=== PATIENT | male | born 1950 | race Caucasian/White ===

== ENCOUNTER 2016-11-17 13:30 | Inpatient (IN) ==
[2016-11-17 15:32] LABS: Basophils # (Auto) 0 K/mcL (0.0-0.3); Basophils % (Auto) 0.4 % (0.0-2.0); Eosinophils # (Auto) 0.2 K/mcL (0.0-0.7); Eosinophils % (Auto) 2.5 % (0.0-7.0); Granulocytes % (Auto) 64.1 % (38.0-78.0); Lymphocytes # (Auto) 2.3 K/mcL (1.5-4.8); Lymphocytes % (Auto) 23.9 % (15.5-49.0); Mean Cell Volume 91.5 fL (80.0-100.0); Mean Corpuscular Hemoglobin 31.2 pg (26.0-34.0); Monocytes # (Auto) 0.9 K/mcL (0.1-0.9); Monocytes % (Auto) 9.1 % (1.0-12.0); Platelet Count 206 K/mcL (140-440); RBC 5.17 M/mcL (4.50-5.90); Red Cell Distribution Width 13.1 % (11.5-14.5)
[2016-11-17 15:41] LABS: Appearance,Urine CLEAR; Bacteria,Urine 0 /hpf (0); Bilirubin,Urine NEG (NEG); Color,Urine YELLOW; Glucose,Urine (UA) >=500 mg/dL (NEG); Leukocyte Esterase,Urine NEG /uL (NEG); Mucus,Urine FEW /hpf (0); Nitrate,Urine NEG (NEG); Protein,Urine NEG (NEG); Specific Gravity,Urine 1.035 (1.000-1.035); Urine Blood NEG mg/dL (<0.03); Urine RBC 1 /hpf (0-1); Urine Squamous Epithelial Cell < 1 /hpf (0-4); Urine WBC < 1 /hpf (0-4); Urobilinogen,Urine NEG (NEG)
[2016-11-17 15:48] LABS: Blood Urea Nitrogen 14 mg/dl (8-23)
[2016-11-23] MEDS ORDERED: PREGABALIN 75 MG CAPSULE PO SCH (05:00)
[2016-11-23] MEDS ORDERED: oxyCODONE 10 MG TAB.ER.12H PO SCH (05:00)
[2016-11-23] MEDS ORDERED: ACETAMINOPHEN 500 MG TABLET PO SCH (05:00)
[2016-11-23] MEDS ORDERED: CELECOXIB 200 MG CAPSULE PO SCH (05:00)
[2016-11-23] MEDS ORDERED: ceFAZolin 1 GM VIAL IV SCH (05:00)
[2016-11-23] MEDS ORDERED: GLYCOPYRROLATE 0.2 MG/ML VIAL IV ONE (13:45)
[2016-11-23] MEDS ORDERED: LIDOCAINE HCL/PF 100 MG/5 ML SYRINGE IV ONE (13:45)
[2016-11-23] MEDS ORDERED: fentaNYL 100 MCG/2 ML VIAL IV ONE (13:45)
[2016-11-23] MEDS ORDERED: SUCCINYLCHOLINE 20 MG/ML ML IV ONE (13:45)
[2016-11-23] MEDS ORDERED: MIDAZOLAM 2 MG/2 ML VIAL IV ONE (13:45)
[2016-11-23] MEDS ORDERED: DEXAMETHASONE 10 MG/ML VIAL IV ONE (13:45)
[2016-11-23] MEDS ORDERED: ONDANSETRON 4 MG/2 ML VIAL IV ONE (13:45)
[2016-11-23] MEDS ORDERED: TRANEXAMIC ACID 1,000 MG/10 ML VIAL IV ONE (13:45)
[2016-11-23] MEDS ORDERED: ROPIVACAINE HCL/PF 30 ML VIAL IJ ONE (13:45)
[2016-11-23] MEDS ORDERED: PROPOFOL 200 MG/20 ML VIAL IV ONE (13:45)
[2016-11-23] MEDS ORDERED: MAGNESIUM HYDROXIDE 30 ML ORAL.SUSP PO PRN ×2 (13:59→15:28)
[2016-11-23] MEDS ORDERED: TRANEXAMIC ACID 1,000 MG/10 ML VIAL IV SCH ×2 (13:59→15:28)
[2016-11-23] MEDS ORDERED: BENZOCAINE/MENTHOL 1 LOZENGE PO PRN ×3 (13:59→15:28)
[2016-11-23] MEDS ORDERED: FLEETS ADULT ENEMA PR PRN ×2 (13:59→15:28)
[2016-11-23] MEDS ORDERED: KETOROLAC 15 MG/ML VIAL IV PRN ×2 (13:59→15:28)
[2016-11-23] MEDS ORDERED: HYDROcodone/APAP 10/325MG TABLET PO PRN ×2 (13:59→15:28)
[2016-11-23] MEDS ORDERED: POLYETHYLENE GLYCOL 3350 17 GM PACKET PO PRN ×2 (13:59→15:28)
[2016-11-23] MEDS ORDERED: HYDROmorphone 2 MG/ML SYRINGE IV PRN ×3 (13:59→15:28)
[2016-11-23] MEDS ORDERED: BISACODYL 10 MG SUPP.RECT PR PRN ×2 (13:59→15:28)
[2016-11-23] MEDS ORDERED: ACETAMINOPHEN 325 MG TABLET PO PRN ×2 (13:59→15:28)
[2016-11-23] MEDS ORDERED: ONDANSETRON 4 MG/2 ML VIAL IV PRN ×3 (13:59→15:28)
[2016-11-23] MEDS ORDERED: NITROGLYCERIN 0.4 MG TAB.SUBL SL PRN (14:01)
--- NOTE | 2016-11-23 14:03 | Brief Operative Note ---
Date of procedure: 11/23/16 Pre-op diagnosis: right shoulder rca and severe djd Post-op diagnosis: same Procedure: right reverse tsa and bicep tenodesis Grafts/Implants: Yes Anesthesia: GETA Complications Description: 11/23/16 14:02 none Surgeon: Baljit Burnett Floral Specialist: Shashank Houser Estimated blood loss (cc): 20 Specimens Removed/Pathology: none sent Condition: stable Disposition: PACU
[2016-11-23] MEDS ORDERED: GENTAMICIN SULFATE 800 MG/20 ML VIAL IR ONE (14:20)
[2016-11-23] MEDS ORDERED: IPRATROPIUM/ALBUTEROL 3 ML AMPUL.NEB NEB PRN (14:55)
[2016-11-23] MEDS ORDERED: MEPERIDINE 50 MG/ML SYRINGE IM PRN (14:55)
[2016-11-23] MEDS ORDERED: ePHEDrine 50 MG/ML AMPUL IV PRN (14:55)
[2016-11-23] MEDS ORDERED: diphenhydrAMINE 50 MG/ML VIAL IV PRN (14:55)
[2016-11-23] MEDS ORDERED: NALOXONE HCL 0.4 MG/ML VIAL IV PRN (14:55)
[2016-11-23] MEDS ORDERED: FLUMAZENIL 0.1 MG/ML ML IV PRN (14:55)
[2016-11-23] MEDS ORDERED: MEPERIDINE 25 MG/ML SYRINGE IV PRN (14:55)
[2016-11-23] MEDS ORDERED: fentaNYL 100 MCG/2 ML VIAL IV PRN (14:55)
[2016-11-23] MEDS ORDERED: METHOCARBAMOL 1,000 MG/10 ML VIAL IV PRN (14:55)
[2016-11-23] MEDS ORDERED: LACTATED RINGERS 250 ML IV PRN (14:55)
[2016-11-23] MEDS ORDERED: LACTATED RINGERS 1,000 ML IV SCH (15:00)
[2016-11-23] MEDS ORDERED: TEMAZEPAM 15 MG CAPSULE PO PRN ×2 (15:28→21:00)
[2016-11-23] MEDS ORDERED: 0.45 % SODIUM CHLORIDE 1,000 ML IV SCH (15:30)
[2016-11-23] MEDS: 0.9 % SODIUM CHLORIDE 10 ML SYRINGE IV SCH ×3 (16:25→23:16)
[2016-11-23] MEDS: 0.45 % SODIUM CHLORIDE 1,000 ML IV SCH (16:26)
--- NOTE | 2016-11-23 16:36 | XRay Report ---
HISTORY: Reason for Exam:Post-OP Total Shoulder FINDINGS: There is a well-positioned reverse total shoulder prosthesis. No fracture is present and there are no abnormal soft tissue calcifications around the joint. IMPRESSION: Well-positioned right shoulder prosthesis Interpreted and Authenticated by: Otis Robertson 11/23/16
--- NOTE | 2016-11-23 16:45 | Operative Note ---
DATE OF OPERATION: 11/23/2016 PREOPERATIVE DIAGNOSIS: Right shoulder rotator cuff arthropathy with biceps tendinopathy. POSTOPERATIVE DIAGNOSIS: Right shoulder rotator cuff arthropathy with biceps tendinopathy. PROCEDURE: Right reverse total shoulder with a biceps tenodesis. SURGEON: Baljit Burnett MD. INFORMATION TECHNOLOGY PROGRAM MANAGER: Shashank Houser PA-C. ANESTHESIA: General LMA anesthesia. COMPLICATIONS: None. ESTIMATED BLOOD LOSS: About 50 mL. BLOOD PRODUCTS GIVEN: None. PREOPERATIVE MEDICATIONS: Tranexamic acid and preop antibiotics given. DESCRIPTION OF PROCEDURE: The patient was brought to the operating room and put to sleep with general LMA anesthesia. Once sat in a beach chair position and sterilely prepped and draped, we did confirm that the right shoulder was the preoperative extremity both by initials, x-rays and consent form. We then placed Ioban over the skin and made a deltopectoral approach. The hand was covered with a stockinette and a Coban. We then made a deltopectoral approach with about a 5 or 6-inch incision from the deltoid insertion to just above the coracoid. Once this was done, this identified the cephalic vein. The deltoid was taken laterally. We elevated the deltoid muscle from the capsule. We then released the subscap and performed a biceps tenodesis with the remnants of the biceps. This was identified and removed and reattached to the pectoralis major with two [id number] #2 Ethibond stitches. Once secured, we released and removed the remnant proximally. After releasing the subscap and removing the capsule and performing a 360 degree capsulotomy and taking the attachment of the capsule onto the humeral neck past the 6 o'clock position. We then placed the guide, made our cut across the neck at the surgical neck region. The bony fragment or head was removed. We then placed a small plate to protect the bone and subluxed the head posteriorly. Once this was done, we then placed this posteriorly and identified the glenoid, 360 degree capsulotomy removing the labrum and the attachment of the biceps. A pin was placed centrally and reamed up to a size 40 until we had bleeding bone on the inferior 50%. We placed the metaglene, which was put into place with a 32 mm central screw, 32 mm superior and inferior screws and then a 32 mm anteriorly. We then placed a 40 mm glenosphere with 2 mm of the inferior eccentricity and 6 mm of offset. Once done, we irrigated thoroughly. We then broached up on the humerus. The humerus was broached up to a 13 stem. We trialed the 13 stem, countersinking this slightly and keeping it at 20 degrees of retroversion. I then placed the trial, and this seemed to fit very nicely. We then tapped into place a size 13 cementless trial with a size 4 standard thickness poly. This reduced very nicely. We irrigated thoroughly and then repaired the remnant of the upper border of the subscap. We irrigated thoroughly. The cephalic vein was kept intact with no damage. We then closed the deltopectoral interval with 2-0 Vicryl and closed the skin with 2-0 Vicryl and adhesive closure. The patient tolerated this well. The patient was placed into a DonJoy sling, fitted and given to the patient at the end of the case. RBH:rigo Job ID: [id number] Doc ID: [id number] Baljit Burnett MD
[2016-11-23] MEDS ORDERED: SIMVASTATIN 40 MG TABLET PO SCH (21:00)
[2016-11-23] MEDS ORDERED: SENNOSIDES 1 TABLET PO SCH ×2 (21:00)
[2016-11-23] MEDS ORDERED: DOCUSATE SODIUM 100 MG CAPSULE PO SCH (21:00)
[2016-11-23] MEDS: ceFAZolin 1 GM VIAL IV SCH (21:18)
[2016-11-23] MEDS: DOCUSATE SODIUM 100 MG CAPSULE PO SCH (21:19)
[2016-11-24] MEDS: 0.45 % SODIUM CHLORIDE 1,000 ML IV SCH (00:28)
[2016-11-24] MEDS: 0.9 % SODIUM CHLORIDE 10 ML SYRINGE IV SCH ×2 (05:23→05:24)
[2016-11-24] MEDS: ceFAZolin 1 GM VIAL IV SCH (05:23)
[2016-11-24] MEDS ORDERED: LEVOTHYROXINE 100 MCG TABLET PO SCH (07:30)
[2016-11-24] MEDS ORDERED: PANTOPRAZOLE 40 MG TABLET PO SCH (07:30)
--- NOTE | 2016-11-24 08:04 | Discharge Summary ---
Ortho Discharge - TSA - Patient Instructions Diet: Regular Diet Activity: activity as tolerated, weight bearing as tolerated Total Shoulder Protocol: Leave immobilizer in place except for bathing and ROM. Abduction pillow. Continue to wear sling until seen by physician. Codman Pendulum : These exercises use momentum produced by your body to move your shoulder joint. Bend your knees and shift your weight to your front leg, then back, allowing your arm to swing in the same directions. Using the same technique, alternately shift your weight between your right and left legs, allowing your arm to swing from side to side. These exercises are also performed in counterclockwise and clockwise circular motions. Typically these exercises are performed several times per day, for a set number repetitions or minutes, such as 20 times in a row or 5 minutes at a time. Dressing Care: Susieel Ag - leave on for 5 days Patient Education: Joint Replacement Surgery (DC) Additional Instructions: Your physical Therapy has been scheduled with [facility] . - Follow Up Plan Follow Up Appointments: Shashank Houser PA-C [Physician Market Development Executive] - 12/08/16 11:20 am Disposition: Home, Self-Care Prognosis: Good Rehab Potential: Good I certify that the patient requires SNF services: No Overall status at discharge: patient is progressing back to baseline - Orders For Discharge Additional Discharge Orders: Physical Therapy at Discharge - TKA Location: Determined By Patient CPM Discharge Order Location: Determined By Patient Toilet Riser Discharge Order Location: Determined By Patient Walker Location: Determined By Patient
[2016-11-24] MEDS ORDERED: ASPIRIN 325 MG ENTERIC COATED TABLET PO SCH (09:00)
[2016-11-24] MEDS ORDERED: ASCORBIC ACID 500 MG TABLET PO SCH (09:00)
[2016-11-24] MEDS ORDERED: VITAMIN B COMPLEX 1 CAPSULE PO SCH (09:00)
[2016-11-24] MEDS ORDERED: LISINOPRIL 20 MG TABLET PO SCH (09:00)
[2016-11-24] MEDS: DOCUSATE SODIUM 100 MG CAPSULE PO SCH (09:00)
[2016-11-24] MEDS ORDERED: ATENOLOL 50 MG TABLET PO SCH (21:00)
== END 2016-11-24 10:50 | disposition home or self-care (01) | DRG 483 ==
LOC: MEDSUR 11-23 11:44
PROVIDERS: ADMIT Orthopaedic Surgery; ATTEND Orthopaedic Surgery

== ENCOUNTER 2017-03-15 09:13 | Inpatient (IN) ==
[2017-03-11 14:26] LABS: Appearance,Urine CLEAR; Bacteria,Urine 0 /hpf (0); Bilirubin,Urine NEG (NEG); Color,Urine YELLOW; Glucose,Urine (UA) >=500 mg/dL (NEG); Leukocyte Esterase,Urine NEG /uL (NEG); Mucus,Urine FEW /hpf (0); Nitrate,Urine NEG (NEG); Protein,Urine NEG (NEG); Specific Gravity,Urine 1.032 (1.000-1.035); Urine Blood NEG mg/dL (<0.03); Urine RBC 0 /hpf (0-1); Urine Squamous Epithelial Cell < 1 /hpf (0-4); Urine WBC < 1 /hpf (0-4); Urobilinogen,Urine NEG (NEG)
[2017-03-11 15:41] LABS: Blood Urea Nitrogen 15 mg/dl (8-23)
[2017-03-11 15:43] LABS: Basophils # (Auto) 0 K/mcL (0.0-0.3); Basophils % (Auto) 0.5 % (0.0-2.0); Eosinophils # (Auto) 0.4 K/mcL (0.0-0.7); Eosinophils % (Auto) 4.5 % (0.0-7.0); Granulocytes % (Auto) 56.5 % (38.0-78.0); Lymphocytes # (Auto) 2.6 K/mcL (1.5-4.8); Lymphocytes % (Auto) 30.1 % (15.5-49.0); Mean Cell Volume 90.3 fL (80.0-100.0); Mean Corpuscular HGB Conc 33.3 g/dL (31.0-36.0); Monocytes # (Auto) 0.7 K/mcL (0.1-0.9); Monocytes % (Auto) 8.4 % (1.0-12.0); Platelet Count 221 K/mcL (140-440); RBC 5.41 M/mcL (4.50-5.90); Red Cell Distribution Width 12.5 % (11.5-14.5)
[~2017-03-15 09:13] MED LIST: ACETAMINOPHEN 500 MG TABLET PO SCH; CELECOXIB 200 MG CAPSULE PO SCH; PREGABALIN 75 MG CAPSULE PO SCH; ceFAZolin 1 GM VIAL IV SCH
[2017-03-15] MEDS ORDERED: BUPIVACAINE W/EPI 0.5% 50 ML VIAL IJ ONE (12:45)
[2017-03-15] MEDS ORDERED: ONDANSETRON 4 MG/2 ML VIAL IV ONE (12:45)
[2017-03-15] MEDS ORDERED: PHENYLEPHRINE 10 MG/ML VIAL IV ONE (12:45)
[2017-03-15] MEDS ORDERED: TRANEXAMIC ACID 1,000 MG/10 ML VIAL IV ONE (12:45)
[2017-03-15] MEDS ORDERED: GLYCOPYRROLATE 0.2 MG/ML VIAL IV ONE (12:45)
[2017-03-15] MEDS ORDERED: SUCCINYLCHOLINE 20 MG/ML ML IV ONE (12:45)
[2017-03-15] MEDS ORDERED: KETAMINE 100 MG/ML ML IV ONE (12:45)
[2017-03-15] MEDS ORDERED: LIDOCAINE HCL/PF 100 MG/5 ML SYRINGE IV ONE (12:45)
[2017-03-15] MEDS ORDERED: PROPOFOL 200 MG/20 ML VIAL IV ONE (12:45)
[2017-03-15] MEDS ORDERED: fentaNYL 100 MCG/2 ML VIAL IV ONE (12:45)
[2017-03-15] MEDS ORDERED: DEXAMETHASONE 10 MG/ML VIAL IV ONE (12:45)
[2017-03-15] MEDS ORDERED: MIDAZOLAM 2 MG/2 ML VIAL IV ONE (12:45)
[2017-03-15] MEDS ORDERED: NALOXONE HCL 0.4 MG/ML VIAL IV PRN (13:25)
[2017-03-15] MEDS ORDERED: PROMETHAZINE 25 MG/ML VIAL IV PRN (13:25)
[2017-03-15] MEDS ORDERED: METHOCARBAMOL 1,000 MG/10 ML VIAL IV PRN (13:25)
[2017-03-15] MEDS ORDERED: IPRATROPIUM/ALBUTEROL 3 ML AMPUL.NEB NEB PRN (13:25)
[2017-03-15] MEDS ORDERED: LACTATED RINGERS 250 ML IV PRN (13:25)
[2017-03-15] MEDS ORDERED: ACETAMINOPHEN 1,000 MG/100 ML BOTTLE IV ONE (13:25)
[2017-03-15] MEDS ORDERED: BENZOCAINE/MENTHOL 1 LOZENGE PO PRN ×2 (13:25→13:48)
[2017-03-15] MEDS ORDERED: fentaNYL 100 MCG/2 ML VIAL IV PRN (13:25)
[2017-03-15] MEDS ORDERED: FLUMAZENIL 0.1 MG/ML ML IV PRN (13:25)
[2017-03-15] MEDS ORDERED: ONDANSETRON 4 MG/2 ML VIAL IV PRN ×2 (13:25→13:48)
[2017-03-15] MEDS ORDERED: LACTATED RINGERS 1,000 ML IV SCH (13:30)
[2017-03-15] MEDS ORDERED: GENTAMICIN SULFATE 800 MG/20 ML VIAL IR ONE (13:43)
[2017-03-15] MEDS ORDERED: MAGNESIUM HYDROXIDE 30 ML ORAL.SUSP PO PRN (13:48)
[2017-03-15] MEDS ORDERED: FLEETS ADULT ENEMA PR PRN (13:48)
[2017-03-15] MEDS ORDERED: BISACODYL 10 MG SUPP.RECT PR PRN (13:48)
[2017-03-15] MEDS ORDERED: ACETAMINOPHEN 325 MG TABLET PO PRN (13:48)
[2017-03-15] MEDS ORDERED: TRANEXAMIC ACID 1,000 MG/10 ML VIAL IV SCH (13:48)
[2017-03-15] MEDS ORDERED: KETOROLAC 15 MG/ML VIAL IV PRN (13:48)
[2017-03-15] MEDS ORDERED: POLYETHYLENE GLYCOL 3350 17 GM PACKET PO PRN (13:48)
[2017-03-15] MEDS ORDERED: HYDROmorphone 2 MG/ML SYRINGE IV PRN (13:48)
--- NOTE | 2017-03-15 13:48 | Brief Operative Note ---
Date of procedure: 03/15/17 Pre-op diagnosis: left shoulder djd and bicep tendonpathy Post-op diagnosis: same Procedure: left reverse tsa and bicep repair Grafts/Implants: Yes Anesthesia: GETA Complications: none Surgeon: Baljit Burnett Bridge Crew Member: Shashank Houser Estimated blood loss (cc): 100 Specimens Removed/Pathology: none sent Condition: stable Disposition: PACU
--- NOTE | 2017-03-15 14:39 | XRay Report ---
HISTORY: Reason for Exam:Post-Op Total Shoulder FINDINGS: There is a well-positioned reverse shoulder prosthesis. No fracture is present. Mild arthritis is present at the acromioclavicular joint. There is a thick band of atelectasis in the left lower lobe. IMPRESSION: Well-positioned left shoulder prosthesis Interpreted and Authenticated by: Otis Robertson 03/15/17
--- NOTE | 2017-03-15 14:58 | Operative Note ---
DATE OF OPERATION: 03/15/2017 PREOPERATIVE DIAGNOSIS: Left shoulder rotator cuff arthropathy and degenerative arthritis. POSTOPERATIVE DIAGNOSIS: Left shoulder rotator cuff arthropathy and degenerative arthritis. PROCEDURE: Left reverse total shoulder and biceps tenodesis. SURGEON: Baljit Burnett MD VENEER GLUE SPREADER: Shashank Houser PA-C ANESTHESIA: General LMA anesthesia. COMPLICATIONS: None. DESCRIPTION OF PROCEDURE: The patient was brought to the operating room and put to sleep with general LMA anesthesia. Once asleep, the patient had the left shoulder sterilely prepped and draped in the usual sterile fashion. Once this was done, we confirmed the operative site. Preop antibiotics and tranexamic acid was given and deltopectoral approach was performed through Ioban covering the skin to isolate it from the operative field. We preserved the cephalic vein and retracted the deltoid laterally, the pectoralis major medially and released the subscap muscle. The biceps tendon had a lot of tendinopathy and was flattened. This was released and a biceps tenodesis was performed to the pectoralis major after roughing the bone and then placing two figure-of-8 stitches. Once this was repaired, we then proceeded with releasing the capsule inferiorly around the glenoid and dislocated the humeral head. At this point, we made our alignment guide and made our neck cut on the humerus. We then inspected the axillary nerve. It was intact. This was palpated with finger. We irrigated thoroughly and then placed retractors and performed a 360 degree capsular release around the glenoid with removal of the labrum and remnants of the biceps tendon. Once this was done, I then identified osteophytes around the glenoid which were released. We released the capsule inferiorly around the glenoid 1 cm along the neck and then we placed our alignment guide at 10 degrees inclination. We then reamed up so the cancellous bone was visible on the inferior half. We then placed a metaglene with a central screw with excellent purchase. We then placed three surrounding screws that measured 24, 44 and 36. We irrigated and then placed a 40 mm glenosphere with 2 mm of offset. Once this was done, we irrigated thoroughly and then tapped that into place. We removed the retractors and prepared the humerus. This was broached up to the size of 12. The 12 was trialed, and the +6 was most appropriate. We placed a 12 stem and then a 6 poly was attached and tapped into place. We reduced the shoulder. It was very stable throughout the range of motion, no impingement. We irrigated thoroughly and repaired the subscap, repaired the interval and closed the skin with 2-0 Vicryl and an adhesive closure. The patient was fitted and given a Donjoy sling. The patient tolerated this without complication. Blood loss was about 100 mL. Implant per nurse's note. This was a Charlene reverse total shoulder. RBH:hortencia Job ID: [id number] Doc ID: [id number] Baljit Burnett MD
[2017-03-15] MEDS ORDERED: ATENOLOL 50 MG TABLET PO ONE (15:10)
[2017-03-15] MEDS: 0.45 % SODIUM CHLORIDE 1,000 ML IV SCH (15:14)
[2017-03-15] MEDS: 0.9 % SODIUM CHLORIDE 10 ML SYRINGE IV SCH ×2 (15:14→20:32)
[2017-03-15] MEDS ORDERED: hydrALAZINE 20 MG/ML VIAL IV ONE (15:49)
[2017-03-15] MEDS ORDERED: hydrALAZINE 20 MG/ML VIAL IV PRN (16:33)
[2017-03-15] MEDS: ceFAZolin 1 GM VIAL IV SCH (20:24)
[2017-03-15] MEDS: DOCUSATE SODIUM 100 MG CAPSULE PO SCH (20:25)
[2017-03-15] MEDS ORDERED: SENNOSIDES 1 TABLET PO SCH (21:00)
[2017-03-15] MEDS ORDERED: TEMAZEPAM 15 MG CAPSULE PO PRN (21:00)
[2017-03-15] MEDS ORDERED: SIMVASTATIN 40 MG TABLET PO SCH (21:00)
[2017-03-15] MEDS: HYDROcodone/APAP 10/325MG TABLET PO PRN (22:30)
[2017-03-16] MEDS: HYDROcodone/APAP 10/325MG TABLET PO PRN ×3 (00:02→09:25)
[2017-03-16] MEDS: 0.45 % SODIUM CHLORIDE 1,000 ML IV SCH (00:09)
[2017-03-16] MEDS: ceFAZolin 1 GM VIAL IV SCH (04:44)
[2017-03-16] MEDS: 0.9 % SODIUM CHLORIDE 10 ML SYRINGE IV SCH (04:50)
[2017-03-16] MEDS ORDERED: PANTOPRAZOLE 40 MG TABLET PO SCH (07:30)
[2017-03-16] MEDS ORDERED: LEVOTHYROXINE 100 MCG TABLET PO SCH (07:30)
--- NOTE | 2017-03-16 07:44 | Orthopedic Progress Note ---
Subjective Patient information: Note initiated : 03/16/17 at 7:43 am Service Date, if different from initiated Date: [] Patient: Blake Oviedo 67 y/o M admitted on 03/15/17 for Left Reverse Total Shoulder Arthroplasty *!outreach manager!*. Chief Complaint: [Pt is stable this morning on post operative day 1 without any significant concerns or complaints. Patients vital signs have remained stable. Patients dressing is dry and is grossly instact from a neurovascular and motor standpoint. Patients 10 point ROS is otherwise negative. ] Objective Vital signs: Vital Signs Temp Pulse Resp BP BP Pulse Ox 03/16/17 04:31 98.2 F 67 16 111/73 90 03/16/17 00:21 97.8 F 70 14 121/73 91 03/15/17 19:55 96 03/15/17 19:16 97.5 F 60 20 170/88 96 03/15/17 17:43 114/67 94 03/15/17 16:45 141/86 95 03/15/17 16:15 146/83 95 03/15/17 16:05 60 16 157/88 96 03/15/17 15:45 173/92 95 03/15/17 15:30 195/96 96 03/15/17 15:15 176/88 95 03/15/17 15:00 96.2 F L 16 180/91 96 03/15/17 14:48 97.0 F 56 L 15 196/85 96 03/15/17 14:34 97.5 F 63 15 177/91 95 03/15/17 14:19 98.2 F 64 15 157/100 96 03/15/17 09:39 97.1 F 18 161/81 94 Intake and Output 03/15/17 03/16/17 03/16/17 21:59 05:59 13:59 Intake Total 240 / 240 950 / 950 Output Total 700 / 700 1100 / 1100 375 / 375 Balance -460 / -460 -150 / -150 -375 / -375 Intake: Oral 240 / 240 950 / 950 Output: Void Amount 700 / 700 1100 / 1100 375 / 375 Other: Meal Dinner Percent of Meal Consumed 75% Feeding Ability Assist with Tray Set Up # Voids 1 Weight 225 lb 8 oz Intake & Output: Intake & Output 03/15/17 03/16/17 03/16/17 21:59 05:59 13:59 Intake Total 240 / 240 950 / 950 Output Total 700 / 700 1100 / 1100 375 / 375 Balance -460 / -460 -150 / -150 -375 / -375 Weight 225 lb 8 oz Intake: Oral 240 / 240 950 / 950 Output: Void Amount 700 / 700 1100 / 1100 375 / 375 Other: Meal Dinner Percent of Meal Consumed 75% Feeding Ability Assist with Tray Set Up # Voids 1 Incision clean and dry: Yes Dressing: Yes clean Weight bearing status: full Neurological exam IM: Yes motor sensory intact, Yes neurovascular intact Extremities exam IM: Yes Foot pink and warm, Yes neurovascular intact - Labs CBC & BMP: 03/11/17 13:31 03/11/17 13:30 Labs: Orthopedic Labs 03/11/17 13:31 PT 12.8 INR 0.9 APTT 29 03/11/17 13:31 Hgb 16.3 Hct 48.9 Assessment and Plan (1) Hx of total shoulder replacement The patient has been educated regarding dressing care, Physical Therapy recommendations, home exercises, restrictions, and follow up appointments. The patient has had all necessary DME prescribed. The patient has remained stable during their hospital course. The patient was discharge with a stable exam. Status: Acute
--- NOTE | 2017-03-16 07:46 | Discharge Summary ---
Ortho Discharge - TSA - Patient Instructions Diet: Regular Diet Activity: activity as tolerated, weight bearing as tolerated Total Shoulder Protocol: Leave immobilizer in place except for bathing and ROM. Abduction pillow. Continue to wear sling until seen by physician. Codman Pendulum : These exercises use momentum produced by your body to move your shoulder joint. Bend your knees and shift your weight to your front leg, then back, allowing your arm to swing in the same directions. Using the same technique, alternately shift your weight between your right and left legs, allowing your arm to swing from side to side. These exercises are also performed in counterclockwise and clockwise circular motions. Typically these exercises are performed several times per day, for a set number repetitions or minutes, such as 20 times in a row or 5 minutes at a time. Dressing Care: May shower in 2 days Patient Education: Shoulder Arthroscopy (DC) - Problem Maintenance (1) Hx of total shoulder replacement Status: Acute - Follow Up Plan Follow Up Appointments: Shashank Houser PA-C [Physician Oracle Distribution Consultant] - 03/30/17 1:40 pm Disposition: Home, Self-Care Prognosis: Good Rehab Potential: Good I certify that the patient requires SNF services: No Overall status at discharge: patient is progressing back to baseline - Orders For Discharge Prescriptions: Docusate Sodium [Colace] 100 mg PO BID #60 cap HYDROcodone/APAP 10/325MG [[place] 10/325Mg] 1 - 2 tab PO Q4HP PRN #75 tab PRN Reason: Pain Level 3-6
[2017-03-16] MEDS ORDERED: ASCORBIC ACID 500 MG TABLET PO SCH (09:00)
[2017-03-16] MEDS ORDERED: VITAMIN B COMPLEX 1 CAPSULE PO SCH (09:00)
[2017-03-16] MEDS ORDERED: LISINOPRIL 20 MG TABLET PO SCH (09:00)
[2017-03-16] MEDS ORDERED: ASPIRIN 325 MG ENTERIC COATED TABLET PO SCH (09:00)
[2017-03-16] MEDS: DOCUSATE SODIUM 100 MG CAPSULE PO SCH (09:25)
[2017-03-16] MEDS ORDERED: ATENOLOL 50 MG TABLET PO ONE (15:10)
[2017-03-16] MEDS ORDERED: ATENOLOL 50 MG TABLET PO SCH (21:00)
== END 2017-03-16 11:28 | disposition home or self-care (01) | DRG 483 ==
LOC: MEDSUR 09:13
PROVIDERS: ADMIT Orthopaedic Surgery; ATTEND Orthopaedic Surgery